=== PATIENT | male | born 1965 | race Caucasian/White ===

== ENCOUNTER 2024-07-20 12:58 | Observation (INO) | payer OTHER, SELFPAY ==
[2024-07-20] VITALS (9 sets, daily range): BP systolic 131–150; BP diastolic 77–100; PULSE 63–71; RESP 14–21; TEMP 36.8–37.4; O2SAT 93–98
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
[2024-07-20 13:26] LABS: Abs Immature Grans 0.06 10^3/uL (0.0-0.06); Absolute Basophil Count 0.09 10^3/uL (0.0-0.2); Absolute Eosinophil Count 0.65 10^3/uL (0.0-0.7); Absolute Lymphocyte Count 2.81 10^3/uL (1.2-3.4); Absolute Neutrophil Count 6.03 10^3/uL (1.2-6.7); Basophils % 0.9 %; Eosinophils % 6.3 %; HCT 44.9 % (40.0-50.0); HGB 15.1 g/dL (13.5-17.5); Immature Grans % 0.6 %; Lymphocytes % 27.2 %; MCH 28.8 pg (27.0-33.0); MCHC 33.6 % (32.0-36.0); MCV 86 fL (80-95); Monocytes % 6.8 %; Neutrophils % 58.2 %; Platelet Count 269 10^3/uL (130-400); RBC 5.25 10^6/uL (4.36-5.78); RDW 13.1 % (11.8-14.1); RDW-SD 40.4 fL; WBC 10.34 10^3/uL (4.4-10.8)
[2024-07-20] MEDS: HYDROmorphone 2 MG/ML SYR 0.5 MG IVP (13:31)
[2024-07-20] MEDS: Acetaminophen 500 MG TAB 1000 MG PO ×2 (13:31→21:27)
[2024-07-20 13:39] LABS: ALT 33 U/L (16-63); AST 34 U/L (15-37); Albumin 4.1 g/dL (3.4-5.0); Alkaline Phosphatase 92 U/L (46-116); Anion Gap 8.9 mmol/L (3-11); BUN 15 mg/dL (7-18); Bilirubin, Total 0.57 mg/dL (0.2-1.0); CO2 29.1 mmol/L (21.0-32.0); CREATININE 1.1 mg/dL (0.70-1.30); Calcium 9.1 mg/dL (8.5-10.1); Chloride 102 mmol/L (98-107); Estimated GFR 77.81 (mL/min/1.73m2); Glucose 102 mg/dL (74-106); INR 1.1 (0.9-1.1); Potassium 3.9 mmol/L (3.5-5.1); Sodium 140 mmol/L (136-145); Total Protein 8.1 g/dL (6.4-8.2)
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
[2024-07-20] MEDS: Omnipaque 350 MG/ML 100 ML BTL IJ (14:47)
[2024-07-20] MEDS: Normal Saline - Diluent 50 ML VIAL IV (14:48)
[2024-07-20] MEDS: Ketorolac 15 MG/ML VIAL IVP ×2 (16:01→22:57)
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
--- OUTSIDE RECORDS SUMMARY | 2024-07-20 20:31 | XMS_ITS | Encounter Summary ---
Author Organization [facility] Address [address] [place] [address] Care Team Providers Care Administration Intern Name Role Phone Monik Castro MD Primary Care Provider [phone] Reason for Visit * Auth/Cert Specialty Diagnoses / Procedures Referred By Marcos li Referred To Contact Diagnoses Dermatochalasis of right upper eyelid Dermatochalasis of left upper eyelid Dermatochalasis of right upper eyelid [H02.831] Dermatochalasis of left upper eyelid [H02.834], BILATERAL Procedures TX REV UPPER EYELID W EXCESS SKIN UPPER AND LOWER BLEPHAROPLASTY Referral ID Status Reason Start Date Expiration Date Visits Re quested Visits Authorized [id number] 1 1 Encounter Details Date Type Department Care Team (Late st Contact Info) Description 10/08/2022 10:35 AM EST Anesthesia Event [facility] [address] [facility] [address] [place], [place] [id number] Sarath Nguyen MD [address] [place] [address] [id number] Anesthesia Record Procedure Summary Procedure Name Responsible Anesthesiologist Anesthesia Start Time Anesthesia Stop Time UPPER AND LOWER BLEPHAROPLASTY (Bilateral: Eye) Sarath Nguyen MD 10/08/22 1035 10/08/22 1234 Events Date Time Event Comment 10/08/2022 1020 1035 An Start I attest that I have identified and re-evaluated the patient immediately before the start of anesthesia and I am satisfied that my anesthetic plan is suitable for the patient's condition and procedure. 1035 An Start Data 1045 An Induction 1046 An LMA 1055 Anesthesia Ready 1232 Emergence 1232 An LMA 1232 an stop data 1234 An Stop 1239 Handoff to RN I completed my handoff to the receiving nurse during which we: 1. Identified the patient 2. Identified the responsible provider 3. Reviewed the pertinent medical history 4. Discussed the surgical course 5. Reviewed intra-op anesthesia management and issues during anesthesia 6. Set expectations for post-procedure period 7. Allowed opportunity for questions and acknowledgement of understanding. Meds Name Total propofol (DIPRIVAN) 180 mg ondansetron (ZOFRAN) 4 mg dexamethasone (DECADRON) 10 mg ceFAZolin (ANCEF) 2 g acetaminophen 10 MG/ML 1,000 mg midazolam 2 MG/2ML 2 mg fentaNYL 0.05 MG/ML 100 mcg ePHEDrine injection (50mg/1 ml) 25 mg LR infusion 1,000 mL * Agents Name O2 N2O * Blood No blood administrations on file. Lines, Drains, and Airways Type Details Placement Removal Peripheral IV 10/08/22; 923; ; Right, Dorsal; Hand 10/08/22 0924 by [place] RN 10/08/22 1332 by Ansley Catalan RN Non-Surgical Airway 10/08/22; 1050 (created via procedure documentation); LMA; 4 10/08/22 1050 by Sarath Nguyen MD 10/08/22 1232 by Sarath Nguyen MD Surgical Incision 10/08/22; 1240; Eye; Right, Left; 10/08/22; 1639 10/08/22 1240 by Ansley Catalan RN 10/08/22 1639 by Automatic Discharge Provider documented in this encounter Social History Tobacco Use Types Packs/Day Years Used Date Smoking Tobacco: Former Cigarettes 0.5 2 1 987 - 1988 Smokeless Tobacco: Never Alcohol Use Standard Drinks/Week Comments Yes 1 (1 standard drink = 0.6 oz pur e alcohol) 2-3 times a week Sex and Gender Information Value Date Recorded Sex Assigned at Male 10/08/2022 8:04 AM EST Legal Sex Male 8:20 AM EST Gender Identity Male 10/08/2022 8:04 AM EST Sexual Orientation Straight or Heterosexual 12/2021 8:04 AM EST COVID-19 Exposure Response Date Recorded In the last 10 days, have yo u been in contact with someone who was confirmed or suspected to have Coronavirus/COVID-19? No / Unsure 10/08/2022 9:06 AM EST documented as of this encounter Last Filed Vital Signs Vital Sign Reading Time Taken Comments Blood Pressure 136/82 10/08/2022 12:30 PM EST Pulse 94 10/08/2022 12:31 PM EST Temperature 36.2 ??C (97.2 ??F) 10/08/2022 12:[address] Respiratory Rate 16 10/08/2022 12:31 PM EST Oxygen Saturation 100% 10/08/2022 12:31 PM EST Inhaled Oxygen Concentration - - Weight - - Height - - Body Mass Index - - documented in this encounter OR Notes * Anesthesia Postprocedure Evaluation - Sarath Nguyen MD - 10/08/2022 12:34 PM EST Anesthesia Post Evaluation Procedure Summary Date: 10/08/22 Room / Location: [place] [address] / [facility] Anesthesia Start: 1035 Anesthesia Stop: 1234 Procedure: UPPER AND LOWER BLEPHAROPLASTY (Bilateral: Eye) Diagnosis: Dermatochalasis of right upper eyelid Dermatochalasis of left upper eyelid (Dermatochalasis of right upper eyelid [H02.831]) (Dermatochalasis of left upper eyelid [H02.834], BILATERAL) Surgeons: Fernando Castro MD Responsible Provider: Sarath Nguyen MD Anesthesia Type: general, MAC ASA Status: 1 Patient location during evaluation: PACU Post op Vital Signs: stable Level of consciousness: awake and alert Pain management: adequate analgesia Airway patency: patent Anesthetic complications: no Respiratory status: unassisted Hydration status: continuing Post-op Complications: No Assessment: Nausea and Vomiting: absent MIPS Measure #404 - Smoking Abstinence Is the patient a current smoker? Yes (G9642) Yes, the patient did undergo an elective surgery or procedure requiring anesthesia. (G9643) No, the patient did not receive preop smoking cessation instructions prior to the day of surgery orprocedure by , [employer] automobile body repair supervisor proxy staff. (Y0404) MIPS Measure #424 - Perioperative Temperature Management Anesthesia time was 60 minutes or longer? Yes (4255F) Anesthesia administered was General (Inhalation or TIVA) or Neuraxial Block? Yes (X0424) Yes (G9771), At least one body temperature greater than 95.8??F/35.5??C was achieved within the 30 minutes immediately prior to or the 15 minutes immediately following anesthesia end time MIPS Measure #76 - Prevention of Central Venous Catheter (CVC) - Related Bloodstream Infections No, a central line was not placed during this case. MIPS Measure #430 - Adult Prevention of Post-Operative Nausea & Vomiting (PONV) - Combination Therapy (18 years and older) This measure is only applicable to patients over 18 years old. Patient received an inhalational anesthetic? Yes (4554F) No, patient did not exhibit three or more risk factor for PONV (X0430) MIPS Measure #463 - Pediatric Prevention of Post-Operative Nausea & Vomiting (PONV) - Combination Therapy This measure is only applicable to patients ages 3-17 years old. MIPS Measure #477 - Multimodal Pain Management The case is Emergent - Exclusion? No Patient was administered multimodal pain management (two or more) drugs and/or interventions excluding systemic opioids in the perioperative period; occurring at some time between 6 hours prior to anesthesia start time until discharged from PACU (G2148) Final Anesthesia Type: general, MAC Anesthesia Post-op Vitals: Vitals Value Taken Time BP 136/82 10/08/22 1230 Temp 36.2 ??C (97.2 ??F) 10/08/22 1230 Pulse 94 10/08/22 1231 Resp 16 10/08/22 1231 SpO2 100 % 10/08/22 1231 * Anesthesia Procedure Notes - Sarath Nguyen MD - 10/08/2022 10:53 AM EST Associated Order(s): Airway Management Airway Management Date/Time: 10/08/2022 10:50 AM Patient location during procedure: OR Urgency: elective Airway not difficult Staff Anesthesiologist: Sarath Nguyen MD Performed by anesthesiologist Indications and Patient Condition Indications for airway management: anesthesia Spontaneous ventilation: present Sedation level: deep (asleep) Preoxygenated: yes Patient position: sniffing Mask difficulty assessment: 1 - easy mask Final Airway Details Final airway type: LMA Successful airway: Size 4 Number of attempts at approach: 1 * Anesthesia Preprocedure Evaluation - Sarath Nguyen MD - 10/08/2022 9:04 AM EST PRE-ANESTHESIA EVALUATION Jose Serrano is a 57 y.o. male Ht Readings from Last 1 Encounters: 10/08/22 5' 10 (1.778 m) Wt Readings from Last 1 Encounters: 10/08/22 81.6 kg (180 lb) BMI Readings from Last 1 Encounters: 10/08/22 25.83 kg/m?? Surgeon: Fernando Castro MD Proposed procedure: Procedure(s): UPPER AND LOWER BLEPHAROPLASTY Pre-op diagnosis: Dermatochalasis of right upper eyelid [H02.831] Dermatochalasis of left upper eyelid [H02.834], BILATERAL Anesthesia Evaluation Airway Mallampati: II Dental - normal exam Pulmonary - negative ROS and normal exam Cardiovascular - negative ROS and normal exam Exercise tolerance: good NYHA Classification: I Neuro/Psych - negative ROS mental status: alert and awake. GI/Hepatic/Renal - negative ROS Endo/Other - negative ROS Prior to Admission Meds: Medications Prior to Admission Medication Sig Dispense Refill Last Dose ??? folic acid (FOLVITE) 1 MG tablet TAKE 1 TABLET BY MOUTH 1 TIME EACH DAY. Past Week ??? Multiple Vitamin (MULTIVITAMIN) capsule Take 1 Capsule by mouth daily 10/07/2022 ??? sertraline (ZOLOFT) 50 MG tablet Take 1 Tablet (50 mg) by mouth daily 10/07/2022 ??? thiamine (VITAMIN B-1) 100 MG tablet Take 1 Tablet (100 mg) by mouth Past Week Scheduled Meds: Infusions: PRN: Anesthesia Plan ASA 1 general The patient is not a current smoker. intravenous induction Postoperative administration of opioids is intended. Anesthetic plan and risks discussed with patient. Plan discussed with attending. documented in this encounter Miscellaneous Notes * Addendum Note - Sarath Nguyen MD - 10/08/2022 3:05 PM EST Addendum created 10/08/22 1505 by Sarath Nguyen MD Clinical Note Signed documented in this encounter Plan of Treatment Not on file documented as of this encounter Procedures Procedure Name Priority Date/Time Associated Diagnosis Comments AIRWAY MANAGEMENT Routine 10/08/2022 10: 50 AM EST documented in this encounter Results * TX AN SUPRAGLOTTIC AIRWAY PLACEMENT (10/08/2022 10:50 AM EST) Narrative Sarath Nguyen MD - 10/08/2022 10:50 AM EST Sarath Nguyen MD ? 10/08/2022 10:53 AM Airway Management Date/Time: 10/08/2022 10:50 AM Patient location during procedure: OR Urgency: elective Airway not difficult Staff Anesthesiologist: Sarath Nguyen MD Performed by anesthesiologist Indications and Patient Condition Indications for airway management: anesthesia Spontaneous ventilation: present Sedation level: deep (asleep) Preoxygenated: yes Patient position: sniffing Mask difficulty assessment: 1 - easy mask Final Airway Details Final airway type: LMA Successful airway: Size 4 Number of attempts at approach: 1 us Sarath Nguyen MD ANESTHESIA ORDERABLES Final Res ult documented in this encounter Visit Diagnoses Not on filedocumented in this encounter Administered Medications Inactive Administered Medications - up to 3 most recent administrations Medication Order MAR Action Action Date Dose Rate Site acetaminophen (OFIRMEV) injection Intravenous, PRN, Starting on Tue10/08/22 at 1048, Until Tue10/08/22 at 1234, Administer over 15 Minutes, Anesthesia Intra-op Given 10/08/2022 10:48 AM EST 1,000 mg ceFAZolin (ANCEF) injection Intravenous, PRN, Starting on Tue10/08/22 at 1035, Until Tue10/08/22 at 1234, Anesthesia Intra-op Given 10/08/2022 10:35 AM EST 2 g dexamethasone (DECADRON) injection Intravenous, PRN, Starting on Tue10/08/22 at 1052, Until Tue10/08/22 at 1234, Anesthesia Intra-op Given 10/08/2022 10:52 AM EST 10 mg ePHEDrine injection Intravenous, PRN, Starting on Tue10/08/22 at 1051, Until Tue10/08/22 at 1234, Anesthesia Intra-op Given 10/08/2022 11:31 AM EST 5 mg Given 10/08/2022 11:22 AM EST 5 mg Given 10/08/2022 11:11 AM EST 5 mg fentaNYL (SUBLIMAZE) injection Intravenous, PRN, Starting on Tue10/08/22 at 1045, Until Tue10/08/22 at 1234, Anesthesia Intra-op Given 10/08/2022 10:45 AM EST 100 mcg LR infusion 100 mL/hr, Intravenous, CONTINUOUS, Starting on Tue10/08/22 at 0915, Until Tue10/08/22 at 1639 New Bag 10/08/2022 10:35 AM EST 100 mL/hr midazolam (VERSED) injection Intravenous, PRN, Starting on Tue10/08/22 at 1045, Until Tue10/08/22 at 1234, Anesthesia Intra-op Given 10/08/2022 10:45 AM EST 2 mg ondansetron (ZOFRAN) injection Intravenous, PRN, Starting on Tue10/08/22 at 1048, Until Tue10/08/22 at 1234, Anesthesia Intra-op Given 10/08/2022 10:48 AM EST 4 mg propofol (DIPRIVAN) injection Intravenous, PRN, Starting on Tue10/08/22 at 1045, Until Tue10/08/22 at 1234, Anesthesia Intra-op Given 10/08/2022 10:45 AM EST 180 mg documented in this encounter Care Teams Administration Intern Relationship Specialty Start Date End Date Monik Castro MD [address] [place] [address] [address] [place] [address] PCP - General 10/08/22 documented as of this encounter
--- OUTSIDE RECORDS SUMMARY | 2024-07-20 20:31 | XMS_ITS | Encounter Summary ---
Author Organization [facility] Address [address] [place] [address] Care Team Providers Care Electronic Heat Seal Operator Name Role Phone Monik Castro MD Primary Care Provider [phone] Encounter Details Date Type Department Care Team (Latest Contact Info) Description 10/08/2022 Travel Social History Tobacco Use Types Packs/Day Years Used Date Smoking Tobacco: Former Cigarettes 0.5 2 1 7 - 1988 Smokeless Tobacco: Never Alcohol Use [...] AM EST documented as of this encounter Plan of Treatment Not on file documented as of this encounter Visit Diagnoses Not on filedocumented in this encounter Care Teams Electronic Heat Seal Operator Relationship Specialty Start Date End Date Monik Castro MD [address] [place] [address] [id number] PCP - General 10/08/22 documented as of this encounter
--- OUTSIDE RECORDS SUMMARY | 2024-07-20 20:31 | XMS_ITS | Clinical Summary ---
Author Organization [facility] Address [address] [place] [id number] Care Team Providers Care Beveller Operator Name Role Phone Monik Castro MD Primary Care Provider [phone] Allergies Active Allergy Reactions Criticality Noted Date Comments Cat Hair Extract Sneezing Medium 01/10/2018 Itchy throat, watery eyes, asthma Medications Multiple Vitamin (MULTIVITAMIN) capsule Take 1 Capsule by mouth daily Active sertraline (ZOLOFT) 50 MG tablet Take 1 Tablet (50 mg) by mouth daily Active folic acid (FOLVITE) 1 MG tablet TAKE 1 TABLET BY MOUTH 1 TIME EACH DAY. 09/15/2022 Active thiamine (VITAMIN B-1) 100 MG tablet Take 1 Tablet (100 mg) by mouth 09/15/2022 Active Active Problems No known active problems Family History Medical History Relation Name Comments Cancer Natural Father Cancer Natural Mother Relation Name Status Comments Natural Father Natural Mother Social History Tobacco Use Types Packs/Day Years Used Date Smoking Tobacco: Former Cigarettes 0.5 2 1 7 - 1988 Smokeless Tobacco: Never Tobacco Cessation:Counseling Given: Not Answered Alcohol Use Standard Drinks/Week Comments Yes 1 (1 standard drink = 0.6 oz pur e alcohol) 2-3 times a week Sex and Gender Information Value Date Recorded Sex Assigned at Male 10/08/2022 8:04 AM EST Legal Sex Male 8:20 AM EST Gender Identity Male 10/08/2022 8:04 AM EST Sexual Orientation Straight or Heterosexual 12/2021 8:04 AM EST Last Filed Vital Signs Vital Sign Reading Time Taken Comments Blood Pressure 134/87 10/08/2022 1:25 PM EST Pulse 79 10/08/2022 1:25 PM EST Temperature 37.1 ??C (98.7 ??F) 10/08/2022 1:25 PM ES T Respiratory Rate 16 10/08/2022 12:39 PM EST Oxygen Saturation 95% 10/08/2022 12:52 PM EST Inhaled Oxygen Concentration - - Weight 81.6 kg (180 lb) 10/08/2022 8:00 AM EST Height 177.8 cm (5' 10) 10/08/2022 8:00 AM EST Body Mass Index 25.83 10/08/2022 8:00 AM EST Plan of Treatment Health Maintenance Due Date Last Done Comments Tetanus / Tdap Shot 1965 Depression Screening 1983 Hepatitis C Antibody Screen 1983 Colonoscopy 2010 Colorectal Cancer Screening 2010 FIT DNA / Cologuard 2010 FIT 2010 FOBT 2010 Sigmoidoscopy 2010 Zoster Vaccines (1 of 2) 2015 Annual Physical Exam 09/15/2023 09/15/2022, 03/24/20 21 COVID-19 Vaccine ( season) 2024 09/27/2021, 12/09/2020, 11/11/2020 Flu Vaccine (#1) 07/08/2024 09/15/2022, , 09/20/2018, Additional history exists Pneumococcal Vaccine: Pediatrics (0 to 5 Years) and At-Risk Patients (6 to 64 Years) Aged Out No longer eligible based on patient's age to complete this topic Insurance [employer]GERY on file Care Teams Beveller Operator Relationship Specialty Start Date End Date Monik Castro MD [address] [place] [id number] PCP - General 10/08/22
--- OUTSIDE RECORDS SUMMARY | 2024-07-20 20:32 | XMS_ITS | Encounter Summary ---
Author Organization [facility] Address [address] [place] [address] Care Team Providers Care Wash Oil Pump Operator Helper Name Role Phone Unavailable Primary Care Provider Unavailabl e Encounter Details Date Type Department Care Team (Latest Contact Info) Description 10/07/2022 Travel Social History Tobacco Use Types Packs/Day Years Used Date Smoking Tobacco: Former Cigarettes Q uit: 1988 Smokeless Tobacco: Never Alcohol Use Standard [...] suspected to have Coronavirus/COVID-19? No / Unsure 10/07/2022 12:56 PM EST documented as of this encounter Plan of Treatment Not on file documented as of this encounter Visit Diagnoses Not on filedocumented in this encounter
--- OUTSIDE RECORDS SUMMARY | 2024-07-20 20:32 | XMS_ITS | Encounter Summary ---
Author Organization [facility] Address [address] [id number] Care Team Providers Care Checker/Stocker Name Role Phone Monik Castro MD Primary Care Provider [phone] Reason for Visit * Auth/Cert Specialty Diagnoses / Procedures Referred By Marcos li Referred To Contact Diagnoses Dermatochalasis of right upper eyelid Dermatochalasis of left upper eyelid Dermatochalasis of right upper eyelid [H02.831] Dermatochalasis of left upper eyelid [H02.834], BILATERAL Procedures OK REV UPPER EYELID W EXCESS SKIN UPPER AND LOWER BLEPHAROPLASTY Referral ID Status Reason Start Date Expiration Date Visits Re quested Visits Authorized [id number] 1 1 Encounter Details Date Type Department Care Team (Latest Contact Info) Description 10/08/2022 8:04 AM EST - 10/08/2022 2:14 PM EST Hospital Encounter EH [address] [facility] OR [address] [place] [address] Fernando Castro MD [address] [place] [address] [address] [place] [address] Discharge Disposition: Home - no needs Social History Tobacco Use Types Packs/Day Years Used Date Smoking Tobacco: Former Cigarettes 0.5 2 1 987 - 1988 Smokeless Tobacco: Never Tobacco Cessation:Counseling [...] Mass Index 25.83 10/08/2022 8:00 AM EST documented in this encounter Discharge Instructions * Discharge Instructions* Ansley Catalan RN - 10/08/2022 12:25 PM EST You received a dose of Tylenol ( MG) in the OR today at 10 48 . You can take your next dose of Tylenol today after 4 48 pm if needed. Tylenol (acetaminophen) comes in various strengths ( 325 mg, 500 mg, 650 mg). Please check the strength (number of milligrams) in the pills you are taking. Do NOT take more than 3 grams (3000 milligrams) of acetaminophen/Tylenol in a 24 hour period. If your surgeon prescribed a pain medication that contains acetaminophen/Tylenol you must remember to include these milligrams in the total number of milligrams taken within a 24 hours period. Do not drink alcohol, drive , operate machinery or make important decisions for 24 hours. Take Tylenol as directed Follow doctor' written instructions documented in this encounter Medications at Time of Discharge folic acid (FOLVITE) 1 MG tablet TAKE 1 TABLET BY MOUTH 1 TIME EACH DAY. 09/15/2022 Multiple Vitamin (MULTIVITAMIN) capsule Take 1 Capsule by mouth daily sertraline (ZOLOFT) 50 MG tablet Take 1 Tablet (50 mg) by mouth daily thiamine (VITAMIN B-1) 100 MG tablet Take 1 Tablet (100 mg) by mouth 09/15/2022 documented as of this encounter H&P Notes * Fernando Castro MD - 10/08/2022 9:23 AM EST [facility] Preoperative History and Physical Author: Fernando Castro MD Patient Name: Jose Serrano : 1965 (57 y.o.) PCP: Monik Castro MD History of Present Illness This 57 y.o. White male is preoperative for the following procedure: UPPER AND LOWER BLEPHAROPLASTY I have re-evaluated the patient immediately prior to the procedure/surgery and I found: No significant interval changes in his condition Review of Systems All appropriate systems were reviewed. Pertinent positives above. All other systems are non-contributory. Past Medical & Surgical Hx Past Medical History: Diagnosis Date ??? Anxiety ??? Childhood asthma, mild intermittent, with acute exacerbation ??? COVID 2019 ??? Depression ??? ZAIRE on CPAP Past Surgical History: Procedure Laterality Date ??? COLONOSCOPY ??? UPPER GASTROINTESTINAL ENDOSCOPY Social & Family Hx Social History Tobacco Use ??? Smoking status: Former Packs/day: 0.50 Years: 2.00 Pack years: 1.00 Types: Cigarettes Quit date: 1988 Years since quittin.9 ??? Smokeless tobacco: Never Substance Use Topics ??? Alcohol use: Yes Alcohol/week: 1.0 standard drink Types: 1 Glasses of wine per week Comment: 2-3 times a week Family History Problem Relation Age of Onset ??? Cancer Natural Mother ??? Cancer Natural Father Allergies & Home Meds Allergies Allergen Reactions ??? Cat Hair Extract Sneezing Itchy throat, watery eyes, asthma Current Outpatient Medications Medication Instructions ??? folic acid (FOLVITE) 1 MG tablet TAKE 1 TABLET BY MOUTH 1 TIME EACH DAY. ??? Multiple Vitamin (MULTIVITAMIN) capsule 1 Capsule, Oral, DAILY ??? sertraline (ZOLOFT) 50 mg, Oral, DAILY ??? thiamine (VITAMIN B-1) 100 mg, Oral Physical Exam Vital Signs: Blood pressure 123/78, pulse 54, temperature 98.5 ??F (36.9 ??C), resp. rate 18, height 5' 10 (1.778 m), weight 81.6 kg (180 lb), SpO2 100 %. Physical Exam: Dermatochalasis BUL Herniated fat BLL Assessment and Plan Preoperative Diagnosis: Dermatochalasis of right upper eyelid [H02.831] Dermatochalasis of left upper eyelid [H02.834], BILATERAL Planned Procedure: UPPER AND LOWER BLEPHAROPLASTY All preprocedure questions were answered. Surgical consent is on the chart. Patient's surgical sitewas marked as per hospital protocol. Signed: Fernando Castro MD Date: 10/08/22 9:23 AM documented in this encounter Nursing Notes * Emiliana Messer RN - 10/08/2022 1:52 PM EST Patient left in stable condition to home via wheelchair. * Ansley Catalan RN - 10/08/2022 1:27 PM EST All discharge instructions given in patient centric language. Patient met all phase II discharge criteria and the discharge measures of surgeon. Patient/family member/support person given written and verbal discharge instructions including: activity restrictions (including not to drink alcohol, drive or make important decisions for at least 24 hours), assistive devices to use post-surgery (ice pack) and wound care directions. Discharge medications and prescriptions listed in discharge instructions, reviewed with patient/family member/support person, including the dosing and side effects of these drugs. Medications given in the OR (acetaminophen, ibuprofen) reviewed with patient, including the timing of the next dose of these medications if needed. Reviewed new devices Gauze dressing with patient/family member/support person and how to manage/care for same. The patient/family member/support person is aware that he/she must notify todays surgeon if any of the following develop: fever >100.4, persistent nausea or vomiting, excessive bleeding from surgical site(s), pus, foul smelling discharge from surgical areas, red streaking from surgical site(s) or pain that does not respond to pain medication. RN reviewed when the patient is to follow up today's surgeon. All questions and concerns addressed at the time the discharge instructions were given. * Cristiana Chahal RN - 10/07/2022 12:58 PM EST Pre-op teaching completed. Medications were reviewed. Patient instructed to take medications as indicated by their provider. Patient verbalized understanding.Arrival time 7:45 am given by sx. documented in this encounter Miscellaneous Notes * Operative Report - Fernando Castro MD - 10/08/2022 2:14 PM EST Images from the original [place] [address] REPORT OF OPERATION NAME: Jose Serrano SURGEON: Fernando Castro MD ACCOUNT NO: [id number] DATE OF PROCEDURE: 10/08/2022 PREOPERATIVE DIAGNOSES: 1. Dermatochalasis, bilateral upper lids. 2. Herniated fat, bilateral lower lids. POSTOPERATIVE DIAGNOSES: 1. Dermatochalasis, bilateral upper lids. 2. Herniated fat, bilateral lower lids. PROCEDURE PERFORMED: 1. Bilateral upper lid blepharoplasty. 2. Bilateral transconjunctival lower lid blepharoplasty. ANESTHESIA: General laryngeal mask airway anesthesia with local injection of 2% lidocaine and 1:100,000 epinephrine. ESTIMATED BLOOD LOSS: Minimal. COMPLICATIONS: None. DESCRIPTION OF PROCEDURE: After extensive discussions as to risks, benefits, and alternatives of the procedure with the patient, informed consent was obtained. The patient was then brought back to the operating room and placed supine on the operating room table. General LMA anesthesia was then administered by the anesthesia department. The above-mentioned anesthetic was then injected into both upper eyelids, lateral canthal areas, and lower eyelids. The patient was then prepped and draped in the usual sterile fashion. A corneal shield was placed in both eyes. Attention was first placed to the upper lids. Using a #15 Bard-Reilly blade, the previously marked skin incisions on both upper eyelids were then incised. Nomi scissors were then used to remove the excess skin and orbicularis muscle layer on both upper eyelids. Monopolar cautery with a Coloradotip needle was then used for hemostasis. Once good hemostasis was achieved, the preaponeurotic fat was identified and the septum was then entered on both upper eyelids. A small amount of preaponeurotic fat was then excised from both upper eyelids, first by clamping the fat, then excising with Nomi scissors, then cauterizing the base before allowing it to fall back into the orbit. The same amount of fat was removed on both sides. Once this was accomplished, good hemostasis was assured. The lid creases on both upper eyelids were then reapproximated using interrupted 6-0 Prolene sutures, andthe remaining skin edges on both upper eyelids were then reapproximated using the same running 6-0 Prolene suture. At this point attention was placed to the lower lids. A 4-0 silk traction suture was the placed into both lower eyelid margins. Attention was first placed to the right lower lid. The right lower lid was then everted. Using a monopolar cautery with a Elliott tip needle, an incision through the conjunctiva down to the herniated fat was then made for the horizontal extent of the lower eyelid. At this point a small amount of herniated fat was then removed from the medial, central, and lateral fat pads using the Elliott tip needle. Once an appropriate amount of fat was removed and good hemostasis was assured, the conjunctiva was then reapproximated using two deep interrupted 6-0 plain sutures. Attention was then placed to the left lower lid. The left lower lid was then everted. Using a monopolar cautery and a Elliott tip needle, incision through the conjunctiva down to the herniated fat was then made for the horizontal extent of the left lower lid. At this point a small amount of herniated fat was then removed from the medial, central, and lateral fat pads using the Elliott tip needle. Once this was accomplished and good hemostasis was assured, the conjunctiva was reapproximated using two deep interrupted 6-0 plain sutures. At this point the traction sutures were removed from both lower eyelids. The corneal pino were then removed from both eyes. Maxitrol ophthalmic ointment was then placed along the incision sites onthe upper lids. TobraDex ophthalmic drops were then placed in both eyes and the patient was then extubated, tolerated the procedure well, and was transferred to the recovery room in good and stable condition. Fernando Castro MD Dict: 10/08/2022 1:16:43 PM Trans: 10/08/2022 4:45:59 PM PMC: [facility] CC: Fernando Castro MD * Brief Op Note - Fernando Castro MD - 10/08/2022 12:22 PM EST Brief Operative Note Patient: Jose Serrano Date of Procedure: 10/08/2022 Pre-op Diagnosis: Dermatochalasis of right upper eyelid [H02.831] Dermatochalasis of left upper eyelid [H02.834], BILATERAL Post-op Diagnosis: Dermatochalasis of right upper eyelid [H02.831] Dermatochalasis of left upper eyelid [H02.834], BILATERAL * No post-op diagnosis entered * Surgeon(s): Fernando Castro MD Procedures: * UPPER AND LOWER BLEPHAROPLASTY Staff: Home Staging Specialist: Jenni Mishra RN Relief Home Staging Specialist: Suni Oquendo Gaming Surveillance Observer: Chris Newton Anesthesiologist: Sarath Nguyen MD Anesthesia: MAC I&O: Intake/Output Summary (Last 24 hours) at 10/08/2022 1222 Last data filed at 10/08/2022 1215 Gross per 24 hour Intake 1000 ml Output -- Net 1000 ml Estimated Blood Loss: * No blood loss amount entered * Report Dictated: Yes Wound Class: Procedure(s): UPPER AND LOWER BLEPHAROPLASTY - Wound Class: Clean Drains: * No LDAs found * Line Info: Peripheral IV 10/08/22 Right;Dorsal Hand (Active) Site Assessment Clean;Dry;Intact 10/08/22 0917 Line Status Infusing 10/08/22 0917 Infiltrated Scale 0 10/08/22916 Phlebitis Scale 0 10/08/22916 Dressing Status Transparent film dressing (Tegaderm) 10/08/22916 Implants: * No implants in log * Specimens: No specimens collected during this procedure. Procedure Details / Findings: Upper and lower bilateral blepharoplasty Disposition: PACU - hemodynamically stable. Electronically signed: Fernando Castro MD documented in this encounter Plan of Treatment Not on file documented as of this encounter Procedures Procedure Name Priority Date/Time Associated Diagnosis Comments BLEPHAROPLASTY 10/08/2022 10:33 AM EST Dermatochalasis of right upper eyelid Dermatochalasis of left upper eyelid Case Notes COSMETIC PACKAGENO M/U Special Needs COSMETIC PACKAGE, OUTSIDE LABS documented in this encounter Visit Diagnoses Not on filedocumented in this encounter Administered Medications Inactive Administered Medications - up to 3 most recent administrations Medication Order MAR Action Action Date Dose Rate Site LR infusion 100 mL/hr, Intravenous, CONTINUOUS, Starting on Tue10/08/22 at 0915, Until Tue10/08/22 at 1639 New Bag 10/08/2022 10:35 AM EST 100 mL/hr LR infusion 1,000 mL, Intravenous, CONTINUOUS, Starting on Tue10/08/22 at 1230, Until Tue10/08/22 at 1639, PACU documented in this encounter Active and Recently Administered Medications Times are shown in EST. Continuous Medication Order 10/06/2022 10/07/2022 10/08/2022 LR infusion 100 mL/hr, Intravenous, CONTINUOUS, Starting on Tue10/08/22 at 0915, Until Tue10/08/22 at 1639 1035 (New Bag - Prov ider: Sarath Nguyen MD)1215 (Stopped - Provider: Sarath Nguyen MD) LR infusion 1,000 mL, Intravenous, CONTINUOUS, Starting on Tue10/08/22 at 1230, Until Tue10/08/22 at 1639, PACU 1230 (Canceled Entry - Comment: Automatically canceled at discontinue of medication order) PRN Medication Order 10/06/2022 10/07/2022 10/08/2022 balanced salts (BSS) ophthalmic solution (CANCELED) PRN, Starting on Tue10/08/22 at 1059, Until Tue10/08/22 at 1238, Intra-op 1059 (Given - Provid er: Fernando Castro MD - Comment: USED THROUGHOUT PROCEDURE) lidocaine 1%-EPINEPHrine 1:100,000 injection (CANCELED) PRN, Starting on Tue10/08/22 at 1059, Until Tue10/08/22 at 1238, Intra-op 1059 (Given - Provid er: Fernando Castro MD) povidone-iodine 5 % ophthalmic solution (CANCELED) PRN, Starting on Tue10/08/22 at 1040, Until Tue10/08/22 at 1238, Intra-op 1040 (Given - Provid er: Fernando Castro MD - Comment: USED PREP) tetracaine (ALTACAINE) 0.5 % ophthalmic solution (CANCELED) PRN, Starting on Tue10/08/22 at 1059, Until Tue10/08/22 at 1238, Intra-op 1059 (Given - Provid er: Fernando Castro MD)1211 (Given - Provider: Fernando Castro MD) tobramycin-dexamethasone (TOBRADEX) 0.3-0.1 % ophthalmic solution (CANCELED) PRN, Starting on Tue10/08/22 at 1211, Until Tue10/08/22 at 1238, Intra-op 1211 (Given - Provid er: Fernando Castro MD) documented in this encounter Care Teams Checker/Stocker Relationship Specialty Start Date End Date Monik Castro MD [address] [place] [id number] PCP - General 10/08/22 documented as of this encounter
--- OUTSIDE RECORDS SUMMARY | 2024-07-20 20:32 | XMS_ITS | Encounter Summary ---
Author Organization [facility] Address [address] [place] [address] Care Team Providers Care Environmental Systems Coordinator Name Role Phone Monik Castro MD Primary Care Provider [phone] Reason for Visit * Auth/Cert Specialty Diagnoses / Procedures Referred By Marcos li Referred To Contact Diagnoses Dermatochalasis of right upper eyelid Dermatochalasis of left upper eyelid Dermatochalasis of right upper eyelid [H02.831] Dermatochalasis of left upper eyelid [H02.834], BILATERAL Procedures DE REV UPPER EYELID W EXCESS SKIN UPPER AND LOWER BLEPHAROPLASTY Referral ID Status Reason Start Date Expiration Date Visits Re quested Visits Authorized [id number] 1 1 Encounter Details Date Type Department Care Team (Late st Contact Info) Description 10/08/2022 9:45 AM EST - 10/08/2022 11:45 AM EST Surgery 20 [facility] OR [address] [place] [address] Fernando Castro MD [address] [place] [address] [address] [place] [address] UPPER AND LOWER BLEPHAROPLASTY Social History Tobacco Use Types Packs/Day Years [...] Sign Reading Time Taken Comments Blood Pressure 123/78 10/08/2022 9:13 AM EST Pulse 54 10/08/2022 9:13 AM EST Temperature 36.9 ??C (98.5 ??F) 10/08/2022 9:13 AM ES T Respiratory Rate 18 10/08/2022 9:13 AM EST Oxygen Saturation 100% 10/08/2022 9:13 AM EST Inhaled Oxygen Concentration - - Weight [...] Castro MD - 10/08/2022 9:23 AM EST [facility] Preoperative History and Physical Author: Fernando Castro [...] from the [place] [address] REPORT OF OPERATION NAME: Jose Serrano SURGEON: Fernando Castro MD ACCOUNT NO: [id number] DATE OF PROCEDURE: 10/08/2022 PREOPERATIVE DIAGNOSES: 1. [...] everted. Using a monopolar cautery with a Villalba tip needle, an incision through the conjunctiva down to the herniated fat was then made for the horizontal extent of the lower eyelid. At this point a small amount of herniated fat was then removed from the medial, central, and lateral fat pads using the Villalba tip needle. Once an appropriate amount of fat was removed and good hemostasis was assured, the conjunctiva was then reapproximated using two deep interrupted 6-0 plain sutures. Attention was then placed to the left lower lid. The left lower lid was then everted. Using a monopolar cautery and a Villalba tip needle, incision through the conjunctiva down to the herniated fat was then made for the horizontal extent of the left lower lid. At this point a small amount of herniated fat was then removed from the medial, central, and lateral fat pads using the Villalba tip needle. Once this was accomplished and [...] 1:16:43 PM Trans: 10/08/2022 4:45:59 PM PMC: [facility] CC: Fernando Castro MD * Brief Op Note - Fernadno Castro MD - 10/08/2022 12:22 PM EST [...] Procedures: * UPPER AND LOWER BLEPHAROPLASTY Staff: Heating And Cooling Technician: Jenni Mishra RN Relief Heating And Cooling Technician: Suni Oquendo Solar Sales Specialist: hCris Newton Anesthesiologist: Sarath Nguyen MD Anesthesia: MAC [...] 10/08/22 Right;Dorsal Hand (Active) Site Assessment Clean;Dry;Intact 10/08/22916 Line Status Infusing 10/08/22 09 Infiltrated Scale 0 10/08/22916 Phlebitis Scale 0 [...] LABS documented in this encounter Visit Diagnoses Diagnosis Dermatochalasis of right upper eyelid Dermatochalasis Dermatochalasis of left upper eyelid Dermatochalasis documented in this encounter Administered Medications Inactive Administered Medications - up to 3 most recent administrations Medication Order MAR Action Action Date Dose Rate Site balanced salts (BSS) ophthalmic solution PRN, Starting on Tue10/08/22 at 1059, Until Tue10/08/22 at 1238, Intra-op Given 10/08/2022 10:59 AM EST 10 mL Procedure/Incisi on Site lidocaine 1%-EPINEPHrine 1:100,000 injection PRN, Starting on Tue10/08/22 at 1059, Until Tue10/08/22 at 1238, Intra-op Given 10/08/2022 10:59 AM EST 16 mL LR infusion 100 mL/hr, Intravenous, CONTINUOUS, Starting on Tue10/08/22 at 0915, Until Tue10/08/22 at 1639 New Bag 10/08/2022 10:35 AM EST 100 mL/hr LR infusion 1,000 mL, Intravenous, CONTINUOUS, Starting on Tue10/08/22 at 1230, Until Tue10/08/22 at 1639, PACU povidone-iodine 5 % ophthalmic solution PRN, Starting on Tue10/08/22 at 1040, Until Tue10/08/22 at 1238, Intra-op Given 10/08/2022 10:40 AM EST 2 Drops tetracaine (ALTACAINE) 0.5 % ophthalmic solution PRN, Starting on Tue10/08/22 at 1059, Until Tue10/08/22 at 1238, Intra-op Given 10/08/2022 12:11 PM EST 2 Drops Given 10/08/2022 10:59 AM EST 2 Drops tobramycin-dexamethasone (TOBRADEX) 0.3-0.1 % ophthalmic solution PRN, Starting on Tue10/08/22 at 1211, Until Tue10/08/22 at 1238, Intra-op Given 10/08/2022 12:11 PM EST 2 Drops documented in this encounter Active and Recently [...] MD) documented in this encounter Care Teams Environmental Systems Coordinator Relationship Specialty Start Date End Date Monik Castro MD [address] [place] [id number] PCP - General 10/08/22 documented as of this encounter
[2024-07-20] MEDS: FAMOTIDINE 20 MG in Normal Saline 100 ML 400 MG IVPB (21:24)
[2024-07-20] MEDS: Enoxaparin 40 MG/0.4 ML SYR SC (21:26)
[2024-07-20] MEDS: Normal Saline Flush 10 ML SYR IVP (21:30)
[2024-07-21] VITALS (30 sets, daily range): BP systolic 109–137; BP diastolic 71–89; PULSE 51–65; RESP 10–23; TEMP 37.4; O2SAT 93–99
[2024-07-21] MEDS: Acetaminophen 500 MG TAB 1000 MG PO ×2 (04:12→09:54)
--- NOTE | 2024-07-21 08:00 | DI.RAD_ITS ---
Exam(s) XR PORTABLE CHEST AP EXAM: XR PORTABLE CHEST AP CLINICAL HISTORY: right ptx TECHNIQUE: 2D digital imaging was performed. COMPARISON: No exams were available for comparison FINDINGS: LUNGS: No infiltrates. Pleural thickening at the left lung apex. No pneumothorax visible. HEART: Normal size. AORTA: Normal diameter. BONES: Distal clavicle fracture again noted. Rib fractures are not visualized. Soft tissues: Unremarkable. IMPRESSION: No visible pneumothorax. Right apical pleural thickening. DATA REPOSITORY: RADIATION DOSE DELIVERED:
[2024-07-21] MEDS: Ketorolac 15 MG/ML VIAL IVP (08:25)
[2024-07-21] MEDS: Normal Saline Flush 10 ML SYR IVP (08:25)
--- NOTE | 2024-07-21 09:22 | DI.VRAD_ITS ---
PROCEDURE INFORMATION: Exam: XR Chest Exam date and time: 07/21/2024 8:44 AM Age: 58 years old Clinical indication: Injury or trauma and condition or disease; Fall; Other: F/u ptx; Blunt trauma (contusions or hematomas) TECHNIQUE: Imaging protocol: Radiologic exam of the chest. Views: 1 view. COMPARISON: CT CHEST/ABD/PEL W 07/20/2024 2:40 PM FINDINGS: Lungs: Unremarkable. No consolidation. Pleural spaces: Pleural thickening in the right apex. No definite pneumothorax identified on x-ray Heart/Mediastinum: Unremarkable. No cardiomegaly. Bones/joints: Again demonstrated is a comminuted displaced fracture of the distal right clavicle. Multiple posterior right rib fractures seen on CT IMPRESSION: Pleural thickening in the right apex No pneumothorax seen on x-ray Comminuted displaced fracture of the distal right clavicle Dictated and Authenticated by: Shantell Flores MD. Ordering:JAME Enamorado MD
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
[2024-07-21] MEDS: FAMOTIDINE 20 MG in Normal Saline 100 ML 400 MG IVPB (09:55)
== END 2024-07-21 11:45 | disposition home or self-care (01) | DRG 184 ==
LOC: ER 19:21 → ICU 07-21 09:47
PROVIDERS: Admitting Provider Surgery; Emergency Provider Emergency Medicine; Visit Provider Surgery
DX: S22.41XA Multiple fractures of ribs, right side, initial encounter for closed fracture; S27.321A Contusion of lung, unilateral, initial encounter; S42.031A Displaced fracture of lateral end of right clavicle, initial encounter for closed fracture; S62.391A Other fracture of second metacarpal bone, left hand, initial encounter for closed fracture; S62.393A Other fracture of third metacarpal bone, left hand, initial encounter for closed fracture; V19.9XXA Pedal cyclist (driver) (passenger) injured in unspecified traffic accident, initial encounter
CPT/HCPCS: 00123; 26600; 74177; 80053; 90715; 94640; 96365; 96366; 96372; 96374; 96375; 96376; 99285; J1650; 70450; 71045; 71260; 72125; 73000; 73030; 73130; 85025; 85610; G0378; J1170; J1885; J3490